=== PATIENT | male | born 1995 | race Caucasian/White ===

== ENCOUNTER 2018-12-01 13:23 | Observation (INO) ==
[2018-12-01] MEDS ORDERED: *HR* Promethazine 25 MG/ML VIAL IVP ONE (13:57)
[2018-12-01] MEDS ORDERED: 0.9 % Sodium Chloride 1,000 ML IVC ONE (13:57)
[2018-12-01] MEDS ORDERED: Morphine Sulfate 2 MG/ML SYRINGE IVP ONE (13:57)
[2018-12-01 14:13] LABS: Bilirubin,Urine Negative (Negative); Blood,Urine Negative (Negative); Clarity,Urine Clear (Clear); Color,Urine Yellow (Yellow); Glucose,Urine (UA) Normal (Normal); Ketones,Urine Negative (Negative); Leukocyte Esterase,Urine Negative (Negative); Nitrite,Urine Negative (Negative); PH,Urine 5.5 pH Units (5.0-8.0); Protein,Urine Negative (Neg-Trace); Specific Gravity,Urine 1.027 (1.010-1.025); Urobilinogen,Urine Normal (Normal)
[2018-12-01 14:38] LABS: Hematocrit 45.4 % (37.5-50.1); Hemoglobin 16.1 g/dL (12.9-16.9); Mean Corpuscular HGB Conc 35.5 g/dL (31.6-35.5); Mean Corpuscular Hemoglobin 30.8 pg (28.0-33.3); Mean Corpuscular Volume 86.8 fL (83.0-100.0); Mean Platelet Volume 9.8 fL (9.4-12.4); Platelet Count 259 K/mcL (140-400); Red Blood Count 5.23 M/mcL (4.19-5.50); Red Cell Distribution Width 11.9 % (11.5-14.5); Segmented Neutrophils % 76.1 %
[2018-12-01 14:39] LABS: Basophils # 0.1 K/mcL (0.0-0.2); Basophils % 0.4 %; Eosinophils # 0.1 K/mcL (0.0-0.6); Eosinophils % 0.7 %; Immature Granulocytes % 0.3 % (0-4); Lymphocytes # 2.2 K/mcL (0.6-4.6); Lymphocytes % 16.6 %; Monocytes # 0.8 K/mcL (0.0-1.3); Monocytes % 5.9 %; Neutrophils # 9.9 K/mcL (1.6-8.9)
[2018-12-01 14:53] LABS: Alanine Aminotransferase 14 Units/L (7-52); Albumin 4.8 g/dL (3.5-5.7); Albumin/Globulin Ratio 1.7 (1.1-2.2); Alkaline Phosphatase 79 Units/L (34-104); Aspartate Amino Transferase 12 Units/L (13-39); BUN/Creatinine Ratio 18 (6-26); Bilirubin,Indirect 0.5 mg/dL (0.0-1.2); Bilirubin,Total 0.5 mg/dL (0.3-1.0); Blood Urea Nitrogen 15 mg/dL (6-20); Calcium 10.4 mg/dL (8.6-10.3); Carbon Dioxide 24 mEq/L (23-29); Chloride 106 mEq/L (98-107); Globulin 2.9 g/dL (2.4-3.5); Glucose 154 mg/dL (70-105); Lipase 14 Units/L (11-82); Osmolality,Calculated 296 (280-300); Potassium 4.5 mEq/L (3.5-5.1); Sodium 141 mEq/L (136-145); Total Protein 7.7 g/dL (6.4-8.9); eGFR For African Americans > 60 (> 60); eGFR For Non-African Americans > 60 (> 60)
[2018-12-01] MEDS ORDERED: Isovue-370 500 ML BOTTLE IVP ONE (15:12)
[2018-12-01] MEDS ORDERED: Ondansetron 4 MG/2 ML VIAL ONE ×2 (16:11→22:07)
[2018-12-01] MEDS ORDERED: Ondansetron 4 MG/2 ML VIAL IVP ONE (16:12)
[2018-12-01] MEDS ORDERED: Ondansetron 4 MG/2 ML VIAL IVP PRN ×2 (16:36→23:34)
[2018-12-01] MEDS ORDERED: Morphine Sulfate Oral CONC 10 MG/0.5 ML ORAL.SYG SL PRN ×2 (16:36→23:34)
[2018-12-01] MEDS ORDERED: 0.9 % Sodium Chloride 1,000 ML IVC SCH ×2 (16:45→23:34)
[2018-12-01] MEDS ORDERED: *HR* Midazolam HCl 2 MG/2 ML VIAL ONE (20:38)
[2018-12-01] MEDS ORDERED: *HR* Rocuronium Bromide 50 MG/5 ML VIAL ONE (20:38)
[2018-12-01] MEDS ORDERED: Lidocaine -MPF 4% 5 ML AMPUL ONE (20:38)
[2018-12-01] MEDS ORDERED: *HR* Propofol 200 MG/20 ML VIAL IVP ONE (20:38)
[2018-12-01] MEDS ORDERED: Lidocaine -MPF 2% 2 ML VIAL ONE (20:38)
[2018-12-01] MEDS ORDERED: *HR* FentaNYL (PF) 100 MCG/2 ML VIAL ONE ×2 (20:38→22:06)
[2018-12-01] MEDS ORDERED: Acetaminophen IV 1,000 MG/100 ML INFUS..BTL ONE (21:15)
[2018-12-01] MEDS ORDERED: Famotidine 20 MG/2 ML VIAL ONE (21:15)
[2018-12-01] MEDS ORDERED: Bupivacaine/EPI 1:200k 0.5%PF 30 ML VIAL ONE (21:18)
[2018-12-01] MEDS ORDERED: CefOXitin 2,000 MG VIAL ONE (21:18)
[2018-12-01] MEDS ORDERED: cefOXitin 2,000 MG in Water for inj. (sterile) 20 ML IVP ONE (22:00)
[2018-12-01] MEDS ORDERED: Dexamethasone 4 MG/ML VIAL ONE (22:07)
[2018-12-01] MEDS ORDERED: Neostigmine Methylsulfate 3 MG/3 ML SYRINGE ONE (22:24)
[2018-12-01] MEDS ORDERED: Ketorolac 30 MG/ML VIAL ONE (22:24)
[2018-12-01] MEDS ORDERED: *HR* Magnesium Sulfate 1 GM/2 ML VIAL ONE (22:38)
[2018-12-02 05:16] LABS: Basophils % 0.1 %; Hematocrit 41.9 % (37.5-50.1); Immature Granulocytes % 0.6 % (0-4); Lymphocytes # 0.7 K/mcL (0.6-4.6); Lymphocytes % 4.3 %; Mean Corpuscular HGB Conc 34.1 g/dL (31.6-35.5); Mean Corpuscular Hemoglobin 30.7 pg (28.0-33.3); Mean Corpuscular Volume 89.9 fL (83.0-100.0); Mean Platelet Volume 10.1 fL (9.4-12.4); Monocytes # 0.5 K/mcL (0.0-1.3); Monocytes % 2.9 %; Neutrophils # 15.7 K/mcL (1.6-8.9); Platelet Count 212 K/mcL (140-400); Red Blood Count 4.66 M/mcL (4.19-5.50); Segmented Neutrophils % 92.1 %
[2018-12-02 05:19] LABS: Hemoglobin 14.3 g/dL (12.9-16.9)
[2018-12-02] MEDS ORDERED: *HR* Heparin 5,000 UNIT/ML VIAL SQ SCH (06:00)
[2018-12-02] MEDS ORDERED: cefOXitin 1,000 MG in Water for inj. (sterile) 10 ML IVP SCH (06:00)
[2018-12-02] MEDS ORDERED: Ketorolac 30 MG/ML VIAL IVP SCH (06:00)
[2018-12-02] MEDS ORDERED: Pantoprazole 40 MG VIAL IVP SCH ×2 (06:30→09:00)
[2018-12-02 10:04] VITALS: BP 102/68
[2018-12-02] MEDS ORDERED: Piperacillin/Tazobactam 3.375 GM in 0.9 % Sodium Chloride Mini Bag 100 ML IVPB SCH (18:00)
== END 2018-12-02 10:50 | disposition home or self-care (01) ==
LOC: EMEROOARM 13:23 → 3ANU 13:23
PROVIDERS: ADMIT Surgery; ATTEND Surgery